=== PATIENT | male | born 1960 | race African-American/Black ===

== ENCOUNTER 2022-09-20 13:00 | Emergency (ER) | payer OTHER ==
[~2022-09-20] VITALS: Ht 175.3 cm; Wt 70.3 kg
--- NOTE | 2022-09-20 13:00 | NUR ---
RECEVED PT 61 YRS MALE FROM HOME UNABLE TO URINATE SINCE LAST NIGHT
--- NOTE | 2022-09-20 13:30 | NUR ---
UNABLE TO INSERTED FOLY CATHETER FR [address] CARO NOTEFED AND AWARE
[2022-09-20] MEDS ORDERED: LIDOCAINE 2% JEL UROJET 10 ML MM ONE ×2 (13:37→14:42)
--- NOTE | 2022-09-20 13:45 | NUR ---
ARIANE RN (CHARGE NURSE ) NOTEFED unable to inseted
--- NOTE | 2022-09-20 14:00 | NUR ---
BLADDER SCAN DONE OVER 850ML
--- NOTE | 2022-09-20 14:08 | NUR ---
DAMION MARTINEZ SENT TO LAB
--- NOTE | 2022-09-20 16:01 | NUR ---
UA SENT TO LAB OUT PUT 950 ML
[2022-09-20 16:37] LABS: BILIRUBIN,URINE NEGATIVE (NEGATIVE); COLOR,URINE YELLOW (YELLOW); LEUKOCYTE ESTERASE ,URINE NEGATIVE (NEGATIVE); NITRITE, URINE POSITIVE (NEGATIVE); PROTEIN,URINE NEGATIVE (NEGATIVE); UGLUCOSE NEGATIVE (NEGATIVE); UROBILINOGEN,URINE 0.2 EU/dL (0.2)
--- NOTE | 2022-09-20 17:00 | NUR ---
OUT PUT 1050 ML BLOODY YELLOW COLOR
--- NOTE | 2022-09-20 17:26 | NUR ---
Patient discharged to home in stable condition. Written and verbal after care instructions given. Patient verbalizes understanding of instruction. d/c home with fc and leg bag
[2022-09-20 17:44] VITALS: BP 123/74
[2022-09-20 17:45] LABS: BACTERIA,URINE Many /HPF (None Seen); RBC,URINE TOO NUMEROUS TO COUN /HPF (0-2); SQUAMOUS EPITHELIAL CELL,UR Few /HPF (None Seen); WBC,URINE NONE SEEN /HPF (0-3)
== END 2022-09-20 17:45 | disposition home or self-care (01) ==
LOC: ER 13:08
DX: N40.1 Benign prostatic hyperplasia with lower urinary tract symptoms (principal); R33.8 Other retention of urine; Z20.822 Contact with and (suspected) exposure to COVID-19
CPT/HCPCS: 99284; 51703; 87426; 87086; 81001; J3490 ×2; C9803